=== PATIENT | female | born 1970 | race Caucasian/White ===

== ENCOUNTER 2022-07-12 07:55 | Outpatient (CLI) | payer OTHER | END 2022-07-12 08:13 | disposition home or self-care (01) | LOC: LAB 07:55 | PROVIDERS: ATTEND Obstetrics & Gynecology | DX: D50.8 Other iron deficiency anemias (principal); N39.0 Urinary tract infection, site not specified; E03.8 Other specified hypothyroidism; E55.9 Vitamin D deficiency, unspecified; E78.01 Familial hypercholesterolemia; A63.8 Other specified predominantly sexually transmitted diseases ==

== ENCOUNTER 2022-07-27 13:37 | Outpatient (CLI) | payer OTHER | END 2022-07-27 15:13 | disposition home or self-care (01) | LOC: LAB 13:37 | PROVIDERS: ATTEND Obstetrics & Gynecology | DX: D50.8 Other iron deficiency anemias (principal); N39.0 Urinary tract infection, site not specified; E03.8 Other specified hypothyroidism; E55.9 Vitamin D deficiency, unspecified; E78.01 Familial hypercholesterolemia; A63.8 Other specified predominantly sexually transmitted diseases ==

== ENCOUNTER 2022-07-27 13:58 | Outpatient (CLI) | payer OTHER | END 2022-07-27 14:04 | disposition home or self-care (01) | LOC: MAMO-SONO 13:58 | PROVIDERS: ATTEND Obstetrics & Gynecology | DX: N64.4 Mastodynia (principal) ==

== ENCOUNTER 2023-02-23 08:19 | Outpatient (CLI) | payer OTHER | END 2023-02-23 08:27 | disposition home or self-care (01) | LOC: LAB 08:19 | PROVIDERS: ATTEND Obstetrics & Gynecology | DX: D50.8 Other iron deficiency anemias (principal); N39.0 Urinary tract infection, site not specified; E03.8 Other specified hypothyroidism; E55.9 Vitamin D deficiency, unspecified; E78.01 Familial hypercholesterolemia; A63.8 Other specified predominantly sexually transmitted diseases; N93.8 Other specified abnormal uterine and vaginal bleeding ==

== ENCOUNTER 2023-05-06 07:46 | Outpatient (CLI) | payer OTHER | END 2023-05-06 07:50 | disposition home or self-care (01) | LOC: LAB 07:46 | PROVIDERS: ATTEND Obstetrics & Gynecology Gynecology | DX: N95.2 Postmenopausal atrophic vaginitis (principal); E03.9 Hypothyroidism, unspecified; E55.9 Vitamin D deficiency, unspecified; R73.9 Hyperglycemia, unspecified; R78.9 Finding of unspecified substance, not normally found in blood; D64.9 Anemia, unspecified; N39.0 Urinary tract infection, site not specified; R19.09 Other intra-abdominal and pelvic swelling, mass and lump; N92.1 Excessive and frequent menstruation with irregular cycle ==

== ENCOUNTER 2023-05-29 13:24 | Outpatient (CLI) | payer OTHER | END 2023-05-29 13:28 | disposition home or self-care (01) | LOC: NUCLEAR 13:24 | PROVIDERS: ATTEND Obstetrics & Gynecology Gynecology | DX: M81.0 Age-related osteoporosis without current pathological fracture (principal) ==

== ENCOUNTER → 2023-08-12 07:19 | Outpatient (CLI) | payer OTHER ==
[2023-08-12 09:13] LABS: PH,URINE 5.5 (5.0-8.0); URINE APPEARANCE Cloudy; URINE BILIRRUBIN Negative (NEGATIVE); URINE BLOOD Negative; URINE COLOR Yellow; URINE GLUCOSE Negative (NEGATIVE); URINE LEUKOCYTE Negative; URINE NITRATE Negative; URINE PROTEIN Trace (NEGATIVE); URINE UROBILINOGEN 0.2 E.U./dl
[2023-08-12 09:14] LABS: HEMATOCRIT 38.8 % (36.0-45.00); HEMOGLOBIN 13.2 g/dL (12.0-15.00); MEAN CELL VOLUME 94.5 fL (80.00-100.00); MEAN CORPUSCULAR HEMOGLOBIN 32.1 pg (27.00-32.0); PLATELET COUNT 230 K/uL (150-450); RED BLOOD COUNT 4.11 M/uL (4.00-6.00); RED CELL DISTRIBUTION WIDTH 13.6 % (11.5-14.5)
[2023-08-12 09:18] LABS: URINE BACTERIA 8464.4 uL (0.0-1933); URINE EPITHELIAL CELLS 122.2 uL (0.0-38.8); URINE RBC 16.3 uL (0.0-20.8); URINE WBC 15.1 uL (0.0-23.2)
[2023-08-12 09:37] LABS: ALBUMIN 3.3 gm/dL (3.4-5.0); BILIRUBIN TOTAL 0.34 mg/dL (0.3-1.2); CALCIUM 8.5 mg/dL (8.5-10.1); CHOL HDL RATIO 2.3 (0-5.0); CREATININE SERUM 0.52 mg/dL (0.55-1.02); GFR 124.82; GLOBULINA 3.4 G/DL (2.4-3.5); POTASSIUM 3.52 mEq/L (3.5-5.1); T4 TOTAL 10.13 UG/DL (4.8-13.9); TOTAL PROTEIN 6.7 gm/dL (6.4-8.2); TSH 1.63 uIU/mL (0.358-3.74)
[2023-08-14 10:24] LABS: T3 TOTAL 0.987 ng/ml (0.846-2.02); VITAMIN D3 25 HYDROXY 74.09 ng/ml (30-120)
== END | disposition home or self-care (01) ==
LOC: LAB 07:19
DX: D64.9 Anemia, unspecified (principal); E78.9 Disorder of lipoprotein metabolism, unspecified; E06.0 Acute thyroiditis; Z12.11 Encounter for screening for malignant neoplasm of colon; E55.9 Vitamin D deficiency, unspecified; N39.0 Urinary tract infection, site not specified; E78.2 Mixed hyperlipidemia; N91.2 Amenorrhea, unspecified; R97.1 Elevated cancer antigen 125 [CA 125]; N39.9 Disorder of urinary system, unspecified; E13.21 Other specified diabetes mellitus with diabetic nephropathy

== ENCOUNTER 2023-08-18 12:31 | Outpatient (CLI) | payer OTHER ==
[2023-08-18 14:15] LABS: ob NEGATIVE (NEGATIVE)
== END 2023-08-18 12:32 | disposition home or self-care (01) ==
LOC: LAB 12:31
DX: D64.9 Anemia, unspecified (principal); E78.9 Disorder of lipoprotein metabolism, unspecified; E78.2 Mixed hyperlipidemia; E06.0 Acute thyroiditis; N91.2 Amenorrhea, unspecified; Z12.11 Encounter for screening for malignant neoplasm of colon; R97.1 Elevated cancer antigen 125 [CA 125]; N39.9 Disorder of urinary system, unspecified; N39.0 Urinary tract infection, site not specified; E13.21 Other specified diabetes mellitus with diabetic nephropathy

== ENCOUNTER 2023-08-18 13:23 | Outpatient (CLI) | payer OTHER | END 2023-08-18 13:37 | disposition home or self-care (01) | LOC: MAMO-SONO 13:23 | PROVIDERS: ATTEND Obstetrics & Gynecology Gynecology | DX: Z12.31 Encounter for screening mammogram for malignant neoplasm of breast (principal); N64.4 Mastodynia; M25.551 Pain in right hip ==

== ENCOUNTER → 2023-11-18 07:38 | Outpatient (CLI) | payer OTHER ==
[2023-11-18 10:21] LABS: HEMATOCRIT 39.1 % (36.0-45.00); HEMOGLOBIN 12.7 g/dL (12.0-15.00); MEAN CELL VOLUME 89.8 fL (80.00-100.00); MEAN CORPUSCULAR HEMOGLOBIN 29.1 pg (27.00-32.0); MEAN CORPUSCULAR HGB CONC 32.4 g/dl (32.0-36.0); PLATELET COUNT 303 K/uL (150-450); RED BLOOD COUNT 4.35 M/uL (4.00-6.00); RED CELL DISTRIBUTION WIDTH 14.1 % (11.5-14.5)
[2023-11-18 10:28] LABS: PH,URINE 5.5 (5.0-8.0); URINE APPEARANCE Clear; URINE BILIRRUBIN Negative (NEGATIVE); URINE BLOOD Negative; URINE COLOR Yellow; URINE GLUCOSE Negative (NEGATIVE); URINE LEUKOCYTE Negative; URINE NITRATE Negative; URINE PROTEIN Negative (NEGATIVE); URINE UROBILINOGEN 0.2 E.U./dl
[2023-11-18 10:35] LABS: URINE BACTERIA 1519.5 uL (0.0-1933); URINE EPITHELIAL CELLS 28.1 uL (0.0-38.8); URINE RBC 2.8 uL (0.0-20.8); URINE WBC 21.6 uL (0.0-23.2)
[2023-11-18 10:44] LABS: ALBUMIN 3.4 gm/dL (3.4-5.0); BILIRUBIN TOTAL 0.33 mg/dL (0.3-1.2); CALCIUM 9.2 mg/dL (8.5-10.1); CREATININE SERUM 0.52 mg/dL (0.55-1.02); GFR 124.32; GLOBULINA 3.7 G/DL (2.4-3.5); POTASSIUM 4.31 mEq/L (3.5-5.1); TOTAL PROTEIN 7.1 gm/dL (6.4-8.2)
== END | disposition home or self-care (01) ==
LOC: LAB 07:38
PROVIDERS: ATTEND Internal Medicine Gastroenterology
DX: B18.2 Chronic viral hepatitis C (principal)

== ENCOUNTER 2023-11-24 08:45 | Outpatient (CLI) | payer OTHER | END 2023-11-24 08:51 | disposition home or self-care (01) | LOC: RAD 08:45 | DX: M54.2 Cervicalgia (principal); M54.6 Pain in thoracic spine; M54.50 Low back pain, unspecified; M25.571 Pain in right ankle and joints of right foot ==

== ENCOUNTER 2024-01-02 10:20 | Outpatient (CLI) | payer OTHER | END 2024-01-02 10:30 | disposition home or self-care (01) | LOC: RAD 10:20 | DX: M35.1 Other overlap syndromes (principal); M79.671 Pain in right foot ==

== ENCOUNTER → 2024-05-17 07:17 | Outpatient (CLI) | payer OTHER ==
[2024-05-17 08:46] LABS: ALBUMIN 3.3 gm/dL (3.4-5.0); BILIRUBIN TOTAL 0.44 mg/dL (0.3-1.2); CALCIUM 8.8 mg/dL (8.5-10.1); CHOL HDL RATIO 2.2 (0-5.0); CREATININE SERUM 0.53 mg/dL (0.55-1.02); GFR 121.62; GLOBULINA 3.3 G/DL (2.4-3.5); POTASSIUM 3.59 mEq/L (3.5-5.1); T4 TOTAL 8.71 UG/DL (4.8-13.9); TOTAL PROTEIN 6.6 gm/dL (6.4-8.2); TSH 2.3 uIU/mL (0.358-3.74)
[2024-05-17 09:40] LABS: T3 TOTAL 1.22 ng/ml (0.846-2.02); VITAMIN D3 25 HYDROXY 50.66 ng/ml (30-120)
== END | disposition home or self-care (01) ==
LOC: LAB 07:17
DX: E78.9 Disorder of lipoprotein metabolism, unspecified (principal); D64.9 Anemia, unspecified; E78.2 Mixed hyperlipidemia; E78.00 Pure hypercholesterolemia, unspecified; E06.0 Acute thyroiditis; N91.2 Amenorrhea, unspecified; Z12.11 Encounter for screening for malignant neoplasm of colon; E11.9 Type 2 diabetes mellitus without complications; E55.9 Vitamin D deficiency, unspecified; R97.1 Elevated cancer antigen 125 [CA 125]; N39.9 Disorder of urinary system, unspecified; N39.0 Urinary tract infection, site not specified; E13.21 Other specified diabetes mellitus with diabetic nephropathy

== ENCOUNTER 2024-07-06 09:09 | Outpatient (CLI) | payer OTHER ==
[2024-07-06 10:05] LABS: HEMOGLOBIN 11.8 g/dL (12.0-15.00); MEAN CELL VOLUME 89.4 fL (80.00-100.00); MEAN CORPUSCULAR HEMOGLOBIN 29.3 pg (27.00-32.0); MEAN CORPUSCULAR HGB CONC 32.7 g/dl (32.0-36.0); PLATELET COUNT 266 K/uL (150-450); RED BLOOD COUNT 4.02 M/uL (4.00-6.00); RED CELL DISTRIBUTION WIDTH 16.3 % (11.5-14.5)
[2024-07-06 10:14] LABS: PH,URINE 5.5 (5.0-8.0); URINE APPEARANCE Cloudy; URINE BILIRRUBIN Negative (NEGATIVE); URINE BLOOD Large; URINE COLOR Dark Yellow; URINE GLUCOSE Negative (NEGATIVE); URINE KETONE Trace (NEGATIVE); URINE LEUKOCYTE Small; URINE NITRATE Negative
[2024-07-06 10:19] LABS: URINE BACTERIA 3414.4 uL (0.0-1933); URINE EPITHELIAL CELLS 28.7 uL (0.0-38.8); URINE RBC 4679.3 uL (0.0-20.8); URINE WBC 104.6 uL (0.0-23.2)
[2024-07-06 10:28] LABS: URINE CAST 0.45 uL (0.0-1.40); URINE PROTEIN 100 (NEGATIVE)
[2024-07-06 10:50] LABS: ALBUMIN 3.2 gm/dL (3.4-5.0); BILIRUBIN TOTAL 0.33 mg/dL (0.3-1.2); CALCIUM 9.3 mg/dL (8.5-10.1); CHOL HDL RATIO 2.2 (0-5.0); CREATININE SERUM 0.54 mg/dL (0.55-1.02); GFR 119.02; GLOBULINA 3.6 G/DL (2.4-3.5); POTASSIUM 3.74 mEq/L (3.5-5.1); TOTAL PROTEIN 6.8 gm/dL (6.4-8.2); TSH 1.68 uIU/mL (0.358-3.74)
[2024-07-09 13:11] LABS: FOLLICLE STIMULATING HORMONE 4.5 mIU/mL (.); LEUTEINIZING HORMONE 2.8 mIU/mL (.)
== END 2024-07-06 09:16 | disposition home or self-care (01) ==
LOC: LAB 09:09
DX: E11.9 Type 2 diabetes mellitus without complications (principal); I10 Essential (primary) hypertension; N18.1 Chronic kidney disease, stage 1; D63.1 Anemia in chronic kidney disease; Z12.11 Encounter for screening for malignant neoplasm of colon; R30.0 Dysuria; E03.9 Hypothyroidism, unspecified; E28.310 Symptomatic premature menopause

== ENCOUNTER 2024-07-06 09:36 | Outpatient (CLI) | payer OTHER | END 2024-07-06 09:40 | disposition home or self-care (01) | LOC: RAD 09:36 | DX: R05.1 Acute cough (principal); Z12.31 Encounter for screening mammogram for malignant neoplasm of breast; N60.29 Fibroadenosis of unspecified breast ==

== ENCOUNTER 2024-07-19 08:11 | Outpatient (CLI) | payer OTHER | END 2024-07-19 10:58 | disposition home or self-care (01) | LOC: MRI 08:11 | PROVIDERS: ATTEND Physical Medicine & Rehabilitation | DX: M76.62 Achilles tendinitis, left leg (principal); M23.332 Other meniscus derangements, other medial meniscus, left knee | CPT/HCPCS: 73721 ==

== ENCOUNTER 2024-08-20 14:25 | Outpatient (CLI) | payer OTHER | END 2024-08-20 14:36 | disposition home or self-care (01) | LOC: MAMO-SONO 14:25 | PROVIDERS: ATTEND Obstetrics & Gynecology | DX: D64.4 Congenital dyserythropoietic anemia (principal); N60.19 Diffuse cystic mastopathy of unspecified breast ==

== ENCOUNTER 2024-09-14 07:24 | Outpatient (CLI) | payer OTHER ==
[2024-09-14 08:28] LABS: HEMATOCRIT 33.8 % (36.0-45.00); HEMOGLOBIN 11.3 g/dL (12.0-15.00); MEAN CELL VOLUME 88.5 fL (80.00-100.00); MEAN CORPUSCULAR HEMOGLOBIN 29.6 pg (27.00-32.0); MEAN CORPUSCULAR HGB CONC 33.5 g/dl (32.0-36.0); PLATELET COUNT 330 K/uL (150-450); RED BLOOD COUNT 3.82 M/uL (4.00-6.00); RED CELL DISTRIBUTION WIDTH 14.5 % (11.5-14.5)
[2024-09-14 08:30] LABS: URINE APPEARANCE Cloudy; URINE BILIRRUBIN Negative (NEGATIVE); URINE BLOOD Large; URINE COLOR Yellow; URINE GLUCOSE Negative (NEGATIVE); URINE KETONE Negative (NEGATIVE); URINE LEUKOCYTE Trace; URINE NITRATE Negative
[2024-09-14 08:34] LABS: URINE BACTERIA 6529.1 uL (0.0-1933); URINE EPITHELIAL CELLS 87.4 uL (0.0-38.8); URINE RBC 72.8 uL (0.0-20.8); URINE WBC 97.7 uL (0.0-23.2)
[2024-09-14 08:56] LABS: URINE CAST 0.76 uL (0.0-1.40); URINE PROTEIN 100 (NEGATIVE)
[2024-09-14 09:33] LABS: ALBUMIN 3.3 gm/dL (3.4-5.0); BILIRUBIN TOTAL 0.34 mg/dL (0.3-1.2); CALCIUM 8.9 mg/dL (8.5-10.1); CREATININE SERUM 0.48 mg/dL (0.55-1.02); FREE TRIODOTIRONINE 2.43 pg/ml (2.18-3.98); GFR 136.35; GLOBULINA 3.6 G/DL (2.4-3.5); POTASSIUM 3.43 mEq/L (3.5-5.1); T4 FREE 1.18 NG/ML (0.76-1.46); TOTAL PROTEIN 6.9 gm/dL (6.4-8.2); TSH 1.3 uIU/mL (0.358-3.74)
[2024-09-23 09:48] LABS: FOLLICLE STIMULATING HORMONE 8.6 mIU/mL (.); LEUTEINIZING HORMONE 2.8 mIU/mL (.); PROGESTERONA < 0.1 ng/mL (.)
== END 2024-09-14 07:25 | disposition home or self-care (01) ==
LOC: LAB 07:24
PROVIDERS: ATTEND Obstetrics & Gynecology
DX: N92.1 Excessive and frequent menstruation with irregular cycle (principal); E27.8 Other specified disorders of adrenal gland; E11.65 Type 2 diabetes mellitus with hyperglycemia; E03.8 Other specified hypothyroidism; N95.1 Menopausal and female climacteric states; E55.9 Vitamin D deficiency, unspecified; E23.1 Drug-induced hypopituitarism

== ENCOUNTER → 2024-12-21 07:03 | Outpatient (CLI) | payer OTHER ==
[2024-12-21 08:45] LABS: PH,URINE 5.5 (5.0-8.0); URINE APPEARANCE Cloudy; URINE BILIRRUBIN Negative (NEGATIVE); URINE BLOOD Moderate; URINE COLOR Yellow; URINE GLUCOSE Negative (NEGATIVE); URINE KETONE 15 (NEGATIVE); URINE LEUKOCYTE Negative; URINE NITRATE Negative; URINE PROTEIN 30 (NEGATIVE); URINE UROBILINOGEN 0.2 E.U./dl
[2024-12-21 08:48] LABS: URINE BACTERIA 6214.2 uL (0.0-1933); URINE EPITHELIAL CELLS 51.4 uL (0.0-38.8); URINE RBC 41.3 uL (0.0-20.8)
[2024-12-21 08:51] LABS: URINE CAST 0.58 uL (0.0-1.40)
[2024-12-21 09:24] LABS: ALBUMIN 3.5 gm/dL (3.4-5.0); BILIRUBIN TOTAL 0.39 mg/dL (0.3-1.2); CALCIUM 9.1 mg/dL (8.5-10.1); CHOL HDL RATIO 2.4 (0-5.0); CREATININE SERUM 0.57 mg/dL (0.55-1.02); GFR 111.38; POTASSIUM 3.73 mEq/L (3.5-5.1); TOTAL PROTEIN 7.5 gm/dL (6.4-8.2); TSH 1.51 uIU/mL (0.358-3.74)
[2024-12-21 09:37] LABS: HEMOGLOBIN 13.2 g/dL (12.0-15.00); MEAN CELL VOLUME 88.7 fL (80.00-100.00); MEAN CORPUSCULAR HEMOGLOBIN 28.5 pg (27.00-32.0); MEAN CORPUSCULAR HGB CONC 32.2 g/dl (32.0-36.0); PLATELET COUNT 298 K/uL (150-450); RED BLOOD COUNT 4.62 M/uL (4.00-6.00); RED CELL DISTRIBUTION WIDTH 17.4 % (11.5-14.5)
== END | disposition home or self-care (01) ==
LOC: LAB 07:03
DX: E11.9 Type 2 diabetes mellitus without complications (principal); I10 Essential (primary) hypertension; N18.1 Chronic kidney disease, stage 1; D63.1 Anemia in chronic kidney disease; Z12.11 Encounter for screening for malignant neoplasm of colon; R30.0 Dysuria; E03.9 Hypothyroidism, unspecified; E28.310 Symptomatic premature menopause

== ENCOUNTER → 2025-03-15 | Outpatient (CLI) | payer OTHER ==
[2025-03-15 09:08] LABS: CALCIUM 8.9 mg/dL (8.5-10.1); CREATININE SERUM 0.57 mg/dL (0.55-1.02); GFR 111.38; POTASSIUM 4.01 mEq/L (3.5-5.1)
== END | disposition home or self-care (01) ==
LOC: LAB 07:57
DX: I10 Essential (primary) hypertension (principal); E11.9 Type 2 diabetes mellitus without complications; N18.1 Chronic kidney disease, stage 1; D63.1 Anemia in chronic kidney disease; Z12.11 Encounter for screening for malignant neoplasm of colon; R30.0 Dysuria; E03.9 Hypothyroidism, unspecified; E28.310 Symptomatic premature menopause

== ENCOUNTER 2025-05-03 07:30 | Outpatient (CLI) | payer OTHER ==
[2025-05-03 09:01] LABS: BASO % 0.8 % (0.1-1.2); EOS # 0.30 (0.04-0.54); EOS % 3.3 % (0.7-7.0); LYMPH # 2.21 (1.18-3.74); LYMPH % 24.4 % (19.3-53.1); MEAN PLATELET VOLUME 11.20 fl (9.4-12.4); MONO # 0.71 (0.24-0.82); MONO % 7.8 % (4.7-12.5); NEUT # 5.74 (1.56-6.13); NEUT % 63.4 % (34.0-71.1); RED CELL DISTRIBUTION WIDTH 13.2 % (11.6-14.4)
[2025-05-03 09:17] LABS: INR 1.07
[2025-05-03 09:46] LABS: BUN CREA RATIO 19.0 (7.0-25.0); CREATININE SERUM 0.57 mg/dL (0.55-1.02); GFR 111.38; GLUCOSE FASTING 115.0 mg/dL (65-100); OSMOLALITY SERUM 287.0 MOSM/KG (275-295)
== END 2025-05-03 07:38 | disposition home or self-care (01) ==
LOC: LAB 07:30
DX: D25.9 Leiomyoma of uterus, unspecified (principal)

== ENCOUNTER 2025-08-06 07:39 | Outpatient (CLI) | payer OTHER ==
[2025-08-06 08:38] LABS: BASO % 0.6 % (0.1-1.2); EOS # 0.23 (0.04-0.54); EOS % 2.8 % (0.7-7.0); LYMPH # 1.83 (1.18-3.74); LYMPH % 22.4 % (19.3-53.1); MEAN PLATELET VOLUME 11.40 fl (9.4-12.4); MONO # 0.59 (0.24-0.82); MONO % 7.2 % (4.7-12.5); NEUT # 5.43 (1.56-6.13); NEUT % 66.4 % (34.0-71.1); RED CELL DISTRIBUTION WIDTH 15.8 % (11.6-14.4)
[2025-08-06 09:37] LABS: ALT/SGPT 37.0 U/L (12-78); AST/SGOT 25.0 U/L (15-37); BILIRUBIN TOTAL 0.38 mg/dL (0.3-1.2); BUN CREA RATIO 17.0 (7.0-25.0); CHOL HDL RATIO 2.4 (0-5.0); CREATININE SERUM 0.58 mg/dL (0.55-1.02); FE 80.0 ug/dl (50-170); GFR 109.17; GLOBULINA 3.1 G/DL (2.4-3.5); GLUCOSE FASTING 137.0 mg/dL (65-100); HDL 87.0 mg/dl (40-60); LDL 100.0 mg/dl (0-130); OSMOLALITY SERUM 288.0 MOSM/KG (275-295); T4 FREE 1.09 NG/ML (0.76-1.46); TSH 1.95 uIU/mL (0.358-3.74); VLDL 22.0 (0-39)
[2025-08-06 14:15] LABS: FOLIC ACID > 20.00 ng/ml (4.78-20); T3 TOTAL 1.160 ng/ml (0.846-2.02); VITAMIN D3 25 HYDROXY 33.20 ng/ml (30-120)
== END 2025-08-06 07:43 | disposition home or self-care (01) ==
LOC: LAB 07:39
DX: D64.3 Other sideroblastic anemias (principal); I10 Essential (primary) hypertension; E78.2 Mixed hyperlipidemia; N39.0 Urinary tract infection, site not specified; E11.21 Type 2 diabetes mellitus with diabetic nephropathy; K92.1 Melena; I12.0 Hypertensive chronic kidney disease with stage 5 chronic kidney disease or end stage renal disease; D44.0 Neoplasm of uncertain behavior of thyroid gland; D52.9 Folate deficiency anemia, unspecified; E61.1 Iron deficiency; D51.0 Vitamin B12 deficiency anemia due to intrinsic factor deficiency; E11.65 Type 2 diabetes mellitus with hyperglycemia; E55.9 Vitamin D deficiency, unspecified; I50.9 Heart failure, unspecified; E03.8 Other specified hypothyroidism; C73 Malignant neoplasm of thyroid gland